=== PATIENT | female | born 1970 | race Two or more races ===

== ENCOUNTER 2019-12-16 16:44 | Emergency (ER) | payer SELFPAY ==
[~2019-12-16] VITALS: Ht 152.4 cm; Wt 50.8 kg
[2019-12-16 17:26] LABS: MICROSCOPIC NOT IND
[2019-12-16 17:33] LABS: CULTURE INDICATED? NO
--- NOTE | 2019-12-16 18:01 | NUR ---
TO ROOM FROM LOBBY. NAD.
[2019-12-16] MEDS ORDERED: SODIUM CHLORIDE FLUSH 10ML SYR IVF ONE (18:30)
[2019-12-16] MEDS ORDERED: SODIUM CHLORIDE 0.9% 1,000ML IVBOLUS ONE (18:30)
[2019-12-16 18:49] LABS: BASOPHILS # (AUTO) 0.02 x10^3/uL (0-0.1); BASOPHILS % (AUTO) 0 % (0-1); EOSINOPHILS # (AUTO) 0.05 x10^3/uL (0-0.4); EOSINOPHILS % (AUTO) 1 % (1-7); LYMPHOCYTES # (AUTO) 1.85 x10^3/uL (1-3.4); LYMPHOCYTES % (AUTO) 26 % (22-44); MD NO; MEAN CORPUSCULAR HEMOGLOBIN 25.4 pg (27.0-34.8); MEAN CORPUSCULAR HGB CONC 32.6 g/dL (32.4-35.8); MEAN CORPUSCULAR VOLUME 78.1 fL (80-100); MEAN PLATELET VOLUME 9.7 fL (7.4-10.4); MONOCYTES # (AUTO) 0.55 x10^3/uL (0.2-0.8); MONOCYTES % (AUTO) 8 % (2-9); NEUTROPHILS # (AUTO) 4.74 x10^3/uL (1.8-6.8); NEUTROPHILS % (AUTO) 66 % (42-75); PLATELET COUNT 338 x10^3/uL (130-400); RED BLOOD COUNT 4.74 x10^6/uL (3.82-5.3); RED CELL DISTRIBUTION WIDTH 13.1 % (9.6-15.2)
[2019-12-16 19:01] LABS: ALBUMIN 3.4 g/dL (3.4-5.0); ANION GAP 7 mmol/L (5-15); CHLORIDE 108 mmol/L (98-107); CREATININE 0.39 mg/dL (0.55-1.02)
[2019-12-16] MEDS ORDERED: LORazepam 2 MG/ML, 1ML ONE (19:56)
[2019-12-16] MEDS ORDERED: LORazepam 2 MG/ML, 1ML IVPush ONE (20:00)
[2019-12-16 22:47] VITALS: BP 139/86
--- NOTE | 2019-12-16 22:48 | NUR ---
REPORT FROM MOHIT PARR
--- NOTE | 2019-12-16 22:49 | NUR ---
PT FOR RECHECK BY MALICK BROWNING
== END 2019-12-16 23:16 | disposition home or self-care (01) ==
LOC: ED 20:59
DX: R10.2 Pelvic and perineal pain (principal); N81.0 Urethrocele; I10 Essential (primary) hypertension; E11.9 Type 2 diabetes mellitus without complications
CPT/HCPCS: 36415; 80048; 81003; 82040; 85025; 93005; 96374; 99284; J2060; J7030